=== PATIENT | female | born 1995 | race Two or more races ===

== ENCOUNTER 2018-10-21 22:06 | Emergency (ER) | payer OTHER ==
[2018-10-21 22:15] VITALS: BP 127/92
--- NOTE | 2018-10-21 22:31 | EDPHY ---
General Time Seen by Provider: 10/21/18 22:17 Narrative: CLINICAL IMPRESSION: Right thumb laceration ASSESSMENT/PLAN: 23-year-old [id number] female presents to the emergency department with an acute laceration to the dorsal base of the right thumb sustained on a broken vase. Patient has intact EPL and EBL function, no evidence of vascular injury, distal 2 point discrimination and neurovascular exam intact. X-ray negative for fracture and glass foreign body. Tetanus up-to-date. Wound was anesthetized, cleaned and repaired as per chart notes below. Wound care reviewed, signs and symptoms of infection discussed. Thumb spica splint provided for comfort. Encouraged follow-up with primary care upon returning home to [place] tomorrow. Warning signs return to ED sooner discussed discharge. DIFFERENTIAL DIAGNOSIS: includes but not limited to laceration of tendon or vascular structure, underlying fracture, laceration with retained FB ED PROCEDURES: Laceration Repair Verbal consent obtained by patient. Risks discussed, including but not limited to infection, pain, retained foreign body, need for additional repair, poor cosmetic result, tendon damage, nerve damage, poor wound healing, vascular damage. Alternatives to repair discussed. [place] protocol used to establish correct patient, procedure, equipment, learning support specialist, and site. Anesthesia obtained by local infiltration. Anesthetized with 0.5% bupivacaine with epi 5 mL. Laceration location base of right thumb, length 4.5 cm, depth 4 mm, Repair type simple. Patient was prepped and draped in usual sterile fashion. Hemostasis achieved with direct pressure. Wound explored through full range of motion and entire depth of wound probed and visualized with gloved finger. No suspicion for nerve damage, tendon damage, underlying fracture, vascular damage, foreign body, or contamination. Area was cleansed with Shur-Clens and irrigated with sterile saline as per protocol. No foreign body or material removed. Repair method 5 0 Prolene simple interrupted sutures. Nineteen sutures placed. Well aligned, closely approximated. wound was dressed with bacitracin and Band- Aid. Patient tolerated well with no immediate complications. Wound care: Clean and dry x 24 hours, gently clean with soap and water, cover with topical antibiotic ointment/bandage. Suture/Staple removal: 10-14 Days Procedure: Splint placement. A Velcro thumb spica splint was applied. After application of the splint I returned and re-examined the patient. The splint was adequately immobilizing the joint and distal to the splint the patient's circulation and sensation was intact. CHIEF COMPLAINT: Laceration HPI: 23-year-old [id number] female presents to the emergency department after cutting the base of her right thumb on a vase that fell out of her significant other's hands onto her thumb. She reports no numbness or loss of sensation to the thumb. She does have movement to the thumb without difficulty. Tetanus is up-to-date. No difficulty with range of motion of the wrist. PAST MEDICAL HISTORY: No significant past medical or surgical history reported Social History: Student at [employer], from [employer] , returning home tomorrow REVIEW OF SYSTEMS: All other systems negative Constitutional: No fever, no chills Musculoskeletal: No deformity, no joint pain Skin: Laceration to the base of the right thumb Neurological: No sensory loss or weakness, 2 point discrimination intact. PHYSICAL EXAM: General Appearance: Alert, oriented, appropriate for age, cooperative, NAD, well hydrated, non-toxic appearing, VSS, no hypoxia. Neurological: Alert and oriented x 3 Skin and musculoskeletal: 4.5 cm, lunar shaped laceration to the base of the right thumb with large tissue flap noted. EPL and EBL function is intact. Distal 2 point discrimination intact MEDICAL DECISION MAKING: Patient was seen independently. Secondary supervising physician at time of evaluation was Dr. White. Diagnosis: Right thumb laceration. New, requires workup Summary: See assessment and plan for summary of ED visit Independent visualization of images, tracing, or specimens yes. Patient Progress improved, stable for discharge. - Diagnostics Imaging Results: Imaging Impressions Hand X-Ray 10/21/18 22:30 Impression: No evidence for acute osseous abnormality right hand. No evidence for radiopaque foreign body. - History Smoking Status: Current some day smoker - Objective Vital Signs: Initial Vital Signs Temperature (C) 37.1 C 10/21/18 22:09 Heart Rate 95 10/21/18 22:09 Respiratory Rate 18 10/21/18 22:09 Blood Pressure 127/92 H 10/21/18 22:09 O2 Sat (%) 98 10/21/18 22:09 O2 Delivery Mode Room Air Allergies/Adverse Reactions: No Known Allergies Allergy (Unverified 10/21/18 22:08) Home Medications: Medication Instructions Recorded Seroquel 10/21/18 Departure - Departure Disposition: Home, Routine, Self-Care Clinical Impression: Laceration of thumb Condition: Good Instructions: Laceration (ED) Additional Instructions: DISCHARGE INSTRUCTIONS FROM YOUR DOCTOR Thank you for visiting our emergency department today. You were treated by a physician assistant professor of mathematics today and your case was reviewed with our ED Attending physician. Please keep in mind that discharge from the emergency department does not mean that there is nothing wrong - it simply means that we have not identified an emergency condition that requires further evaluation or treatment in the hospital. You should always plan to follow up with primary care for re- evaluation of your condition in the next 2-3 days. If you have been referred to a specialist, please call as soon as possible (today or tomorrow) to schedule your follow up appointment at the appropriate time. PLEASE HAVE SUTURES/KARINA REMOVED IN 10-14 DAYS. X-RAYS TONIGHT SHOWED NO FRACTURE OR RETAINED GLASS FOREIGN BODY. YOU CAN RETURN TO THE EMERGENCY DEPARTMENT OR YOUR PRIMARY CARE FOR SUTURE/STAPLE REMOVAL. AVOID SUBMERGING SUTURES/KARINA UNDERWATER FOR PROLONGED PERIOD OF TIME UNTIL REMOVED. KEEP WOUND CLEAN AND DRY, COVER WITH ANTIBIOTIC OINTMENT AND BAND-AID. RETURN TO EMERGENCY DEPARTMENT FOR REDNESS, SWELLING, DISCHARGE, WARMTH TO THE SKIN, OR ANY OTHER CONCERNS FOR INFECTION. People present with illnesses and injuries in different ways, and it is always possible that we have missed something. You may always return for re-evaluation if symptoms worsen or if they are not improving or if you develop new/different symptoms. Again, thank you for choosing our emergency department. We hope that you feel better. Referrals: NONE *PRIMARY CARE P,. [Primary Care Provider] - As per Instructions (FOLLOW-UP WITH PRIMARY CARE IN [place])
== END 2018-10-22 00:06 | disposition home or self-care (01) ==
PROC: 0HQGXZZ Repair Left Hand Skin, External Approach (ICD-10-PCS; principal; 2018-10-21)
DX: S61.011A Laceration without foreign body of right thumb without damage to nail, initial encounter (principal); W25.XXXA Contact with sharp glass, initial encounter
CPT/HCPCS: L3807